=== PATIENT | female | born 1940 | race Caucasian/White ===

== ENCOUNTER → 2019-11-06 13:22 | Outpatient (CLI) | payer MEDICARE, SELFPAY ==
[2019-11-08 11:39] LABS: COVID19 Sendout Not Detected (Not Detect)
== END ==
PROVIDERS: PCP Family Medicine; Visit Provider Nurse Practitioner
DX: Z11.59 Encounter for screening for other viral diseases (principal)
CPT/HCPCS: 87635

== ENCOUNTER 2019-11-09 08:42 | Day surgery (SDC) | payer MEDICARE, SELFPAY ==
[2019-11-08 07:40] VITALS: BMI 23.8
[2019-11-09] VITALS (15 sets, daily range): BP systolic 98–170; BP diastolic 47–95; PULSE 71–108; RESP 10–19; TEMP 35.8–36.9; O2SAT 91–98; BMI 23.8
--- NOTE | 2019-11-09 06:00 | DI.RAD.S_ITS ---
PROCEDURE: XR KNEE RT 1TO2V INDICATIONS: postop. TECHNIQUE: 2 view(s) of the knee acquired. [facility], [place], XR KNEE ARTHRITIC SERIES BI, 09/27/2019, 14:37. FINDINGS: Bones: Patient is status post knee joint medial hemiarthroplasty. Hardware components are in expected positions. Visualized bony structures are intact. Soft tissues: Overlying postoperative changes are noted. IMPRESSION: Normal postoperative examination. Dictated by: Bruno Mark M.D. on 11/09/2019 at 12:43 Approved by: Bruno Mark M.D. on 11/09/2019 at 12:44
[2019-11-09] MEDS: LACTATED RINGERS 1,000 ML 42 ML IV (09:33)
[2019-11-09] MEDS: CELECOXIB 200 MG CAPSULE PO (09:34)
[2019-11-09] MEDS: ACETAMINOPHEN 325 MG TABLET 975 MG PO (09:34)
[2019-11-09] MEDS: PREGABALIN 75 MG CAPSULE PO (09:34)
[2019-11-09] MEDS: VANCOMYCIN 1,000 MG/200 ML PIGGYBACK 200 MG IV (09:48)
--- NOTE | 2019-11-09 10:19 | PM.PREOP ---
Pre-operative Note COVID-19 COVID-19 status: Negative Interval Note History & Physical reviewed/Exam performed by Physician: Yes Changes to H&P: No
--- NOTE | 2019-11-09 10:20 | PM.OP.1 ---
Operative Date/Time/Diagnoses Date of procedure: 11/09/19 Time of procedure: 10:49 Pre-op diagnosis: Right knee medial osteoarthritis Post-op diagnosis: same Procedure & Clinicians Procedure: Right knee medial unicompartment replacement Same procedure as scheduled: Yes Indications: The patient has had progressively worsening right knee pain with radiographic changes consistent with arthritis. Non-operative management has failed and the patient has requested partial right medial Uni knee replacement. The risks, benefits and alternatives to surgery were discussed with the patient prior to proceeding. Risks discussed included, but were not limited to, failure to relieve pain, stiffness, infection, nerve damage, deep venous thrombosis, pulmonary embolism, stroke, coma, heart attack, permanent paralysis and , as well as the potential need for eventual revision of the prosthetic. Surgeon: Cheryl Paz Service Line Coordinator: Romeo Young Anesthesia Type: General Operative Notes Findings: Severe medial compartment osteoarthritis, good stability Closure Type: primary Specimen(s): none sent Prosthetic devices, grafts, tissues, transplants, or devices: [employer], size C femur, size 3 tibia, +9 poly Estimated Blood Loss (mL): 250 Blood products transfused: none Procedure in detail: The patient was seen in the pre-operative area, where the right knee was identified as the operative site and this was marked with my initials. The patient received pre-operative antibiotics, and was taken to the operating room and placed on the operative table in the supine position. After satisfactory anesthesia, a registered phlebotomist part time out was performed. The right leg was encircled with a tourniquet about the proximal thigh, and the leg was prepared from the toes to the tourniquet with ChloroPrep in the usual fashion and draped through sterile drapes. The leg was elevated and exsanguinated with Eschmark bandage and the tourniquet inflated to [250] mmHg pressure. The knee was approached through an approximately 10 cm incision medial parapatella incision and carried into the knee through a medial parapatellar arthrotomy. The osteophytes and medial meniscus were removed. Next, a small amount of the anterior tibial boss was carefully resected with a saw. The guide was placed along the medial joint line. It was meticulously adjusted to make sure there was appropriate slope that it was at the joint line and then was pinned to the tibia and the femur. The medial femoral condylar cut was made in extension. The tibial cut was made in flexion. The bone was meticulously irrigated with normal saline. Small amount of additional meniscus was resected posterior capsule was checked and injected with Marcaine. The extension gap was carefully checked with an 8 mm gap design engineering technician was noted that it fit well. A small number of additional osteophytes were resected. The tibia was a size 3. It was noted that it fit without overhang. The femur was sized and it was noted to be a [C]. The appropriate cutting guide was pinned into place and carefully positioned on the femoral condyle. Drill holes were placed. The tibia was pinned into place and drill holes were made. Trial reduction with the appropriate poly showed full range of motion and good stability at 0, 45. and 90? with normal tracking of the components without edge loading. The bone was meticulously irrigated and dried. Additional Marcaine was injected. The posterior capsule was injected with 0.25% Marcaine mixed with 20 ml Exparel for post-operative pain control. The remainder of this mixture was injected into the capsule and subcutaneous tissues during cement curing. Range of motion was [0-130], with good stability throughout the range. The trials were then remove. The cement was as applied and the final prosthetics placed. Excess cement was removed during and after cement curing. A brief medial compartment Betadine soak was performed. After confirming there was no extruded cement posteriorly, the final tibial insert was placed. The knee was copiously irrigated and the tourniquet deflated. Hemostasis was obtained. The capsule was closed with interrupted vicryl. The subcutaneous tissue was closed with barbed sutures. The skin with a running 3-0 V-Lock suture and surgical glue. An Aquacel Ag dressing was applied and the patient was taken to recovery having tolerated the procedure well. Complications: none Post-operative Condition: stable Disposition: observation Plan for aftercare: The patient will be maintained on a standard medial Uni knee replacement protocol with weight bearing as tolerated. The patient will receive aspirin and sequential compression devices for DVT prophylaxis. She has known severe sleep apnea which she has had significant difficulty managing with her CPAP. Planning to admit her overnight for observation respiratory support as needed. She also had problems postoperatively after another did other knee with pain management.
[2019-11-09] MEDS: CEFAZOLIN 2 GM/100 ML FROZ.PIGGY IV ×2 (10:46→19:11)
[2019-11-09] MEDS: TRANEXAMIC ACID 1,000 MG VIAL 1000 MG INJ ×2 (11:03→12:02)
--- NOTE | 2019-11-09 11:10 | SUR.OPER ---
Supine on padded OR bed. Pillow under head, arms secured on padded armboards <90 degree abduction. Safety belt across torso. Non-operative leg secured with tape over blanket over lower leg. Operative leg secured in DeMayo/Bennie positioner. Foam padded brace at thigh of operative leg.
[2019-11-09] MEDS: BUPIVACAINE 0.25% W/ EPI 30 ML VIAL 60 ML INJ (11:17)
[2019-11-09] MEDS: BUPIVACAINE LIPOSOME 266 MG/20 ML VIAL INJ (11:18)
[2019-11-09] MEDS: SODIUM CHLORIDE IRRIG SOLUTION 250 ML, POVIDONE-IODINE SPONGE STICKS 1 APPLIC IRR (11:19)
--- NOTE | 2019-11-09 13:36 | PC.NURSE ---
Day shift: Pt on unit from PACU at approx 1330. Oriented to room and call light. She left her CPAP in [place]. VS WNL. Denies pain or nausea.
[2019-11-09] MEDS: LACTATED RINGERS 1,000 ML 100 ML IV (14:02)
--- NOTE | 2019-11-09 15:00 | PT.IIE ---
Current Diagnoses Unilateral primary osteoarthritis, right knee (11/09/19) Surgery Performed Operation Date: 11/09/19 10:45 Actual Procedures p Unicompartment Knee Arthroplasty(Right) - Cheryl Paz MD Physical Therapy Inpatient Evaluation/Re-Eval M1 PT/OT-IP Prior Functional Status Start: 11/09/19 16:30 Freq: NEEDED Status: Active Protocol: Document 11/09/19 15:00 AB (Rec: 11/09/19 16:42 [facility] Medical Review Prior Functional Status Medical History Reviewed Yes Communication able to make needs known Mobility and Gait pt stated that she is independent with all mobilities and ambulation without AD but occasionally uses SPC/hurrycane for outdoor mobility Social History Household Members spouse Living Arrangements House Number of Floors (Floors) One Floor Number of Stairs To Enter/Railing? 2 steps with L rail to enter Home Environment High Toilet,Walk in Shower, Built-In Shower Seat Home Equipment Hand Held Shower,Grab Bars In Shower M2 PT-IP Current Condition Start: 11/09/19 16:30 Freq: NEEDED Status: Active Protocol: Document 11/09/19 15:00 AB (Rec: 11/09/19 16:42 AB [id number]) Physical Therapy Current Condition Current Condition Evaluation Date 11/09/19 Treatment Diagnosis s/p R uni knee; difficulty in walking Onset Date 11/09/19 Weight Bearing Status Weight Bearing Status Weight Bear as Tolerated Allowed Weight Bearing Amount (enter % RLE WBAT or #) (%) M3 PT-IP Subjective Start: 11/09/19 16:30 Freq: NEEDED Status: Active Protocol: Document 11/09/19 15:00 AB (Rec: 11/09/19 16:42 [facility] Subjective Physical Therapy Visit Type Type Initial Evaluation Visit Start Time 15:00 Visit Stop Time 15:43 Total Visit Minutes 43 Number of LIGHTER Visits 0 Physical Therapy Visit Comments Patient Comments pt is agreeable to do PT; requesting to use the toilet Therapy Pain Assessment Pain Present Pain Present Denied Pain M4 PT-IP Mobility and Gait Start: 11/09/19 16:30 Freq: NEEDED Status: Active Protocol: Document 11/09/19 15:00 AB (Rec: 11/09/19 16:42 AB [id number]) PT-Bed Mobility Assessment Supine to Sit Supine to Sit Standby Assistance Sit to Supine Sit to Supine Standby Assistance PT-Transfer Assessment Sit to and From Stand Sit to and from Stand Contact Guard Assistance,1 Person Assistance Equipment Transfer Assistive Device Gait Belt,Front Wheeled Walker Orthotic/Prosthetic Devices or Brace: No Transfers Transfer Destination Toilet Transfer Technique ambulated using FWW Transfer Ability Level of Assist Contact Guard Assistance Comments Mobility Comments completed supine to sit SBA. pt can be impulsive. completed sit to stand CGA and ambulated to the toilet using FWW CGA. pt tends to carry and leave FWW for ambulation. stated that he does not have any pain on R knee. pt educated safety and agreed but continues to require cues afterwards. ambulated towards the toilet using FWW CGA. was able to complete toileting SBA and ambulated out of the toilet using FWW SBA towards the sink . completed handwashing SBA leaning on sink for support. ambulated in room ~ 40 ft using FWW SBA to CGA and cues for safety. pt requested to go back to bed and completed sit to supine SBA. positioned pt in bed. call light and table placed witin reach. Gait Assessment Gait Gait Assistance Required: Standby Assistance,Contact Guard Assist Distance (Feet) 40 Assistive Devices Assistive Device Gait Belt,Front Wheeled Walker Orthotic/Prosthetic Devices or Brace: No Gait Deviations General Gait Pattern Antalgic,Decreased Stride Length,Decreased Feet Clearance,Narrow Based Gait Factors Limiting Gait Function Factors Limiting Gait Function Decreased Activity Tolerance, Decreased Strength,Difficulty Following Directions,Limited Range of Motion,Pain,Poor Balance,Poor Safety Awareness Comments Gait Comments pt tends to cross LE during ambulation PT-Balance Assessment Sitting Balance and Reactions Static Sitting Balance Ability Good Dynamic Sitting Balance Ability Good Standing Balance and Reactions Static Standing Balance Ability Fair Dynamic Standing Balance Ability Fair Device Used FWW M5 PT-IP Objective Assessments Start: 11/09/19 16:30 Freq: NEEDED Status: Active Protocol: Document 11/09/19 15:00 AB (Rec: 11/09/19 16:42 AB [id number]) Orientation Orientation/Cognition Level of Alertness Alert Orientation Name,Age,Birthday,Month,Date, Year,Day of Week,Place, Situation Language Function Ability No Deficits Noted Safety Awareness Decreased Safety Awareness Strength Lower Extremity Strength Hip 4-/5 Knee 4-/5 Coordination Assessment Gross Coordination Gross Coordination WNL Sensation Assessment Sensation Gross Sensation WNL Muscle Tone Muscle Tone WNL Yes M6 PT-IP Treatment Start: 11/09/19 16:30 Freq: NEEDED Status: Active Protocol: Document 11/09/19 15:00 AB (Rec: 11/09/19 16:42 AB [id number]) Physical Therapy Treatment Exercises Exercises Heel Slides Education Education Provided Precautions,Weight Bearing Status,Post-Op Packet,Safety M7 PT-IP Assessment and Plan Start: 11/09/19 16:30 Freq: NEEDED Status: Active Protocol: Document 11/09/19 15:00 AB (Rec: 11/09/19 16:42 AB [id number]) PT Summary Assessment and Plan Potential Rehabilitation Potential Good Status of Condition at Evaluation Stable Summary Impairments Pain,ROM,Strength,Balance, Coordination,Sensation, Cognition,Bed Mobility, Transfers,Gait,Activity Tolerance Assessment Summary pt requiring SBA to CGA with mobility. pt plans to go home and spouse to assist her. will conduct caregiver training when appropriate and will also completed stair cliimbing training. Pt does not have a FWW for home use at this time, stated that she can get one at the [facility] in [place]. will f/u and if pt is not able to get a FWW, will need FWW before going home. Goals Bed Mobility Goal Independent Transfer Goal Independent,Front Wheeled Walker Gait Goal Independent,Front Wheel Walker Gait Distance 250 Other Goals up/down 2 steps L rail ascending SBA Days to Meet Goals 5 Frequency of Treatment Frequency Of Treatment Twice a Day Treatment Plan Physical Therapy Treatment Plan Bed Mobility Training,Transfer Training,Gait Training, Therapeutic Exercise,Balance Retraining,Post Op Education, Discharge Planning,Hot or Cold Pack,Neuromuscular Re-ed, Coordination Retraining,Manual Therapy Recommendations To Nursing Amount of Assist Needed 1 Person Assist Discharge Recommendations PT Discharge Recommendations Home with Assistance, Outpatient PT Equipment Needed for Home Before FWW Discharge Transportation Needs at Discharge Private Vehicle,Wheelchair/ Cabulance
[2019-11-09] MEDS: ACETAMINOPHEN 325 MG TABLET 650 MG PO ×2 (15:50→21:57)
[2019-11-09] MEDS: IBUPROFEN 400 MG TABLET PO ×3 (17:20→23:49)
[2019-11-09] MEDS: ASPIRIN EC 81 MG TABLET PO (21:57)
[2019-11-09] MEDS: ATORVASTATIN 20 MG TABLET 40 MG PO (21:57)
[2019-11-09] MEDS: DOCUSATE 100 MG CAPSULE PO (21:57)
--- NOTE | 2019-11-09 22:34 | PC.NURSE ---
Addendum entered by Isaiah Fagan R.N. 11/09/19 22:37: Eugenio w/ Driss wrap clean/dry/intact. Original Note: Patient having minimal pain 03/05. Patient using scheduled Tylenol and Ibuprofen. Standby assist w/ FWW to the bathroom. Patient CMS intact, no numbness or tingling, pedal pulses palpable.
[2019-11-10] VITALS: BP 147/92; PULSE 87; RESP 16; TEMP 36.7; O2SAT 94
--- NOTE | 2019-11-10 01:57 | PC.NURSE ---
Pt denies pain to right knee. Dressing CDI. CMS+ PPP+. Pt is SBA and ambulating well with steady gait. IV fluids stopped as she is taking adequate PO with good urinary output. Pt is assisted back to bed and CPAP in place.
[2019-11-10] MEDS: CEFAZOLIN 2 GM/100 ML FROZ.PIGGY IV (02:16)
[2019-11-10] MEDS: HYDROMORPHONE 2 MG TABLET PO (02:30)
[2019-11-10 05:46] VITALS: BP 167/81; PULSE 89; RESP 16; TEMP 36.2; O2SAT 97
[2019-11-10 05:54] LABS: Hematocrit 34.4 % (36-46); Hemoglobin 11.2 g/dL (12.0-16.0)
[2019-11-10] MEDS: IBUPROFEN 400 MG TABLET PO ×2 (06:17→08:12)
[2019-11-10 07:15] VITALS: BP 131/73; PULSE 79; RESP 19; TEMP 36.9; O2SAT 96
[2019-11-10 07:51] VITALS: O2SAT 98
--- NOTE | 2019-11-10 07:59 | PM.PN.1 ---
Subjective Subjective Date Patient Seen: 11/10/19 Time Patient Seen: 07:59 Interval history: She notes she is doing extremely well. She has minimal pain in her knee and she is much better than she was on the other knee. She did not have problems with her sleep apnea overnight. Exam Vital Signs (past 8 hours): - 11/10/19 00:00 11/10/19 05:46 11/10/19 07:51 Temperature 98.1 F 97.1 F L Pulse Rate 87 89 Respiratory Rate 16 16 Blood Pressure 147/92 H 167/81 H Pulse Oximetry 94 97 98 Oxygen Delivery Method Room Air Oxygen Flow Rate 0 Narrative Exam Narrative: She is alert she is oriented her dressing is dry her calfs are soft bilaterally she has an excellent straight leg raise Objective Labs Result Diagrams: 11/10/19 05:20 Labs: Laboratory Results - last 24 hr 11/10/19 05:20 Hgb 11.2 L Hct 34.4 L Assessment & Plan Assessment & Plan narrative: Doing well status post a medial compartment arthroplasty. Plan discharge to home and start outpatient physical therapy.
[2019-11-10] MEDS: DOCUSATE 100 MG CAPSULE PO (08:11)
[2019-11-10] MEDS: ACETAMINOPHEN 325 MG TABLET 650 MG PO (08:11)
[2019-11-10] MEDS: FLUoxetine 20 MG CAPSULE 40 MG PO (08:11)
[2019-11-10] MEDS: ASPIRIN EC 81 MG TABLET PO (08:12)
--- NOTE | 2019-11-10 09:26 | PT.IPTN ---
Current Diagnoses Unilateral primary osteoarthritis, right knee (11/09/19) Surgery Performed Operation Date: 11/09/19 10:45 Actual Procedures p Unicompartment Knee Arthroplasty(Right) - Cheryl Paz MD Physical Therapy Treatment Note M2 PT-IP Current Condition Start: 11/09/19 16:30 Freq: NEEDED Status: Discharge Protocol: Document 11/09/19 15:00 AB (Rec: 11/09/19 16:42 AB [id number]) Physical Therapy Current Condition Current Condition Evaluation Date 11/09/19 Treatment Diagnosis s/p R uni knee; difficulty in walking Onset Date 11/09/19 Weight Bearing Status Weight Bearing Status Weight Bear as Tolerated Allowed Weight Bearing Amount (enter % RLE WBAT or #) (%) M3 PT-IP Subjective Start: 11/09/19 16:30 Freq: NEEDED Status: Discharge Protocol: Document 11/10/19 09:26 AB (Rec: 11/10/19 12:31 AB [email or web address]) Subjective Physical Therapy Visit Type Type Treatment Note Visit Start Time 09:26 Visit Stop Time 09:45 Total Visit Minutes 19 Number of BANKING CONSULTANT Visits 0 Physical Therapy Visit Comments Patient Comments pt is agreeablet od o PT Therapy Pain Assessment Pain When Pain Assessed At Rest Pain Present Pain Present Pain Reported Location Right Knee Intensity 2 Scale Used Numeric (0 - 10) Pain Management Techniques Timing of Activity with Medications M4 PT-IP Mobility and Gait Start: 11/09/19 16:30 Freq: NEEDED Status: Discharge Protocol: Document 11/10/19 09:26 AB (Rec: 11/10/19 12:31 AB [email or web address]) PT-Bed Mobility Assessment Supine to Sit Supine to Sit Standby Assistance Sit to Supine Sit to Supine Standby Assistance Scooting Scooting to Edge of Bed Standby Assistance PT-Transfer Assessment Sit to and From Stand Sit to and from Stand Standby Assistance Equipment Transfer Assistive Device Gait Belt,Straight Cane Orthotic/Prosthetic Devices or Brace: No Comments Mobility Comments followed up with pt regarding FWW and stated that she does not need one. from previous conversation, stated that she is going to be able to borrow one. pt stated that she has a cane at home. pt called her spouse to get a FWW for her. completed supine to sit SBA. assessed ambulation using SPC. completed sit to stand SBA and ambulated in room using SPC ~ 30 ft CGA with initial LOB but able to rebalance. agreed to ambulate in hallway and do stair climbing. completed ambulation using SPC SBA to CGA ~ 150 ft. completed up/down steps using L rail and SPC CGA. pt assisted back to her room. ambulated from w/c to bed using SPC SBA. NAC in room and took over to assist pt to get ready for d/c. Gait Assessment Gait Gait Assistance Required: Standby Assistance,Contact Guard Assist Distance (Feet) 150 Able to Maintain Weight Bearing Status Yes During Gait Assistive Devices Assistive Device Gait Belt,Front Wheeled Walker Orthotic/Prosthetic Devices or Brace: No Gait Deviations General Gait Pattern Antalgic,Decreased Stride Length,Decreased Feet Clearance,Step-to Gait Factors Limiting Gait Function Factors Limiting Gait Function Decreased Activity Tolerance, Decreased Strength,Difficulty Following Directions,Limited Range of Motion,Pain,Poor Balance,Poor Safety Awareness Stair Climbing Assessment Evaluation Level of Assist On Stairs Contact Guard Assistance,1 Person Assistance Devices Stair Climbing Assistive Devices Straight Cane,Left Railing Technique/Endurance Stair Climbing Direction Ascend and Descend Stair Climbing Technique Step to Step Number of Steps Climbed 3 Stair Climbing Set # Repetitions (reps) 2 M5 PT-IP Objective Assessments Start: 11/09/19 16:30 Freq: NEEDED Status: Discharge Protocol: Document 11/09/19 15:00 AB (Rec: 11/09/19 16:42 AB [email or web address]) Orientation Orientation/Cognition Level of Alertness Alert Orientation Name,Age,Birthday,Month,Date, Year,Day of Week,Place, Situation Language Function Ability No Deficits Noted Safety Awareness Decreased Safety Awareness Strength Lower Extremity Strength Hip 4-/5 Knee 4-/5 Coordination Assessment Gross Coordination Gross Coordination WNL Sensation Assessment Sensation Gross Sensation WNL Muscle Tone Muscle Tone WNL Yes M6 PT-IP Treatment Start: 11/09/19 16:30 Freq: NEEDED Status: Discharge Protocol: Document 11/10/19 09:26 AB (Rec: 11/10/19 12:31 AB [email or web address]) Physical Therapy Treatment Education Education Provided Safety M7 PT-IP Assessment and Plan Start: 11/09/19 16:30 Freq: NEEDED Status: Discharge Protocol: Document 11/10/19 09:26 AB (Rec: 11/10/19 12:31 AB [email or web address]) PT Summary Assessment and Plan Potential Rehabilitation Potential Good Summary Impairments Pain,ROM,Strength,Balance, Coordination,Sensation,Tone, Cognition,Bed Mobility, Transfers,Gait,Activity Tolerance Progress Towards Goals Progressing Toward Goals Assessment Summary pt is progressing with mobility. able to ambulate using SPC SBA but FWW is still recommended especially for long distance, outdoor mobility. pt plans to go home with spouse to assist her and has outpt scheduled. pt may go home when medically stable. Goals Bed Mobility Goal Independent Transfer Goal Independent,Front Wheeled Walker Gait Goal Independent,Front Wheel Walker Gait Distance 250 Other Goals ambulation using SPC mod I 200 ft up/down 2 steps L rail ascending SBA Days to Meet Goals 5 Frequency of Treatment Frequency Of Treatment Twice a Day Treatment Plan Physical Therapy Treatment Plan Bed Mobility Training,Transfer Training,Gait Training, Therapeutic Exercise,Balance Retraining,Post Op Education, Discharge Planning,Hot or Cold Pack,Neuromuscular Re-ed, Coordination Retraining,Manual Therapy Recommendations To Nursing Amount of Assist Needed 1 Person Assist Discharge Recommendations PT Discharge Recommendations Home with Assistance, Outpatient PT Equipment Needed for Home Before FWW Discharge Transportation Needs at Discharge Private Vehicle,Wheelchair/ Cabulance
--- NOTE | 2019-11-10 10:15 | PC.NURSE ---
Discharge: Reviewed discharge instructions, given prescriptions, IV removed. Patient has all belongings with her. Transported home in private vehicle with spouse.
== END 2019-11-10 10:50 | disposition home or self-care (01) ==
LOC: OR 12:52 → AC 12:53
PROVIDERS: Referring Provider Orthopaedic Surgery; Visit Provider Orthopaedic Surgery
PROC: (CPT 27446; principal; 2019-11-09 10:45)
DX: M17.11 Unilateral primary osteoarthritis, right knee (principal); G47.33 Obstructive sleep apnea (adult) (pediatric); I25.10 Atherosclerotic heart disease of native coronary artery without angina pectoris; I25.2 Old myocardial infarction; F17.210 Nicotine dependence, cigarettes, uncomplicated
CPT/HCPCS: 27446; 36415; 73560; 85014; 85018; 94660; 94762; 97116; 97161; 97530; C1776; A9270; C9290; J0690; J1100; J2250; J2405; J2704; J3010

== ENCOUNTER → 2019-12-07 10:00 | Outpatient (CLI) | payer MEDICARE, SELFPAY ==
[2019-11-09 14:05] VITALS: BMI 23.8
[2019-12-08 00:48] LABS: COVID19 Sendout Not Detected (Not Detect)
== END ==
PROVIDERS: Visit Provider Physician Assistant
DX: Z01.812 Encounter for preprocedural laboratory examination (principal)
CPT/HCPCS: 87635

== ENCOUNTER 2019-12-11 13:00 | Observation (INO) | payer MEDICARE, SELFPAY ==
[2019-11-09 14:05] VITALS: BMI 23.8
[2019-12-07 11:50] VITALS: BMI 23.8
[2019-12-10] VITALS (12 sets, daily range): BP systolic 98–164; BP diastolic 68–89; PULSE 87–108; RESP 12–23; TEMP 36.3–36.9; O2SAT 89–98; BMI 23.8
--- NOTE | 2019-12-10 | DI.RAD.S_ITS ---
PROCEDURE: XR LUMBAR SPINE 2-3V INDICATIONS: L4-5 TLIF TECHNIQUE: Fluoroscopic images were obtained during an operative procedure and submitted for interpretation following the completion of the procedure. COMPARISON: [facility], CT, CT LUMBAR SPINE WITHOUT CONTRAST, 09/30/2019, 12:13. FINDINGS: These fluoroscopic images were performed for intraoperative localization. On these images, pedicle screws are seen at the L4 and L5 levels, with vertical fixation rods and a disc spacer.. Please correlate with intraoperative findings. A sacral stimulator can be seen. IMPRESSION: Normal intraoperative examination. Dictated by: Bruno Mark M.D. on 12/10/2019 at 10:23 Approved by: Bruno Mark M.D. on 12/10/2019 at 10:24
[2019-12-10] MEDS: LACTATED RINGERS 1,000 ML 42 ML IV (07:45)
--- NOTE | 2019-12-10 07:49 | PM.PREOP ---
Pre-operative Note COVID-19 COVID-19 status: Negative Result date/Date tested (Pos, Neg/Pending): 12/08/19 Interval Note History & Physical reviewed/Exam performed by Physician: Yes Changes to H&P: No
[2019-12-10] MEDS: CEFAZOLIN 2 GM/100 ML FROZ.PIGGY IV (07:55)
--- NOTE | 2019-12-10 08:36 | SUR.OPER ---
Prone on spine table, head in foam head support, padded chest and pelvic supports, gel pad at knees, lower legs supported by pillows; nipples, genitalia and toes free of pressure, arms secured on foam padded arm boards at <90 degrees abduction. Tape over blanket at thigh secured to table.
[2019-12-10] MEDS: BUPIVACAINE 0.25% W/ EPI 30 ML VIAL INJ (08:40)
[2019-12-10] MEDS: BUPIVACAINE LIPOSOME 266 MG/20 ML VIAL INJ (08:42)
--- NOTE | 2019-12-10 10:31 | PM.OP.1 ---
Operative Date/Time/Diagnoses Date of procedure: 12/10/19 Time of procedure: 08:31 Pre-op diagnosis: 1. L4-5 spondylolisthesis 2. L4-5 spinal stenosis with radiculopathy Post-op diagnosis: same Procedure & Clinicians Procedure: 1. L4-5 Postero-lateral and posterior interbody fusion 2. L4-5 interbody cage placement. 3. L4-5 decompressive laminectomy with bilateral facetecomies 4. L4-5 Posterior non-segmental instrumentation 5. [place] of bone marrow from iliac crest 6. Utilization of microsurgical technique and operating microscope Same procedure as scheduled: Yes Indications: Patient has been having chronic back pain and worsening lumbar radiculopathy. Patient failed multiple conservative management with worsening pain weakness and numbness in her lower extremity. Patient has been having difficulty performing activity of daily living. After discussing risks benefits of treatment options, patient elected proceed with surgery. Surgeon: Niko Richard Field Sales Consultant: Aracelis Cunningham Click Yes if Unassisted: No Anesthesia Type: General Operative Notes Closure Type: primary Specimen(s): none sent Prosthetic devices, grafts, tissues, transplants, or devices: Globus revolve screws, Rise cage Estimated Blood Loss (mL): 40 Blood products transfused: none Procedure in detail: Patient was seen in the preoperative area. Risks and benefits of the surgery was discussed with the patient. Informed consent was obtained from the patient and placed in the chart. Surgical site was marked. Patient was taken to the operative room. General anesthesia was administered. Prophylactic antibiotic was given to the patient less than 30 min before the incision was made. Patient was placed into a prone position on the Giovani table. Patient's back was then prepped and draped in the sterile fashion. Time-out was performed at this time. Using AP and lateral C-arm imaging the interval between L4-5 was identified and marked on patient's back. A 2 inch incision 2 in from midline was made on the left side first. The fascia was incised in line with skin incision. Globus MARS retractors was placed inside the incision and docked onto the L4 lamina. Using microsurgical technique and operating microscope, a L4 laminectomy and L4-5 facetectomy was performed using a Kerrison rongeur. The disc space at L4-5 was identified. And a total diskectomy was performed at L4-5 level. Patient was found have severe central and neural foramen stenosis which was fully decompressed after laminectomy facetectomy was completed. The endplates were decorticated using a rasp and shaver. The total diskectomy and decortication was performed at L4-5 level in order to to accomplish a L4-5 fusion. The local bone from the laminectomy and facetectomy was saved for local bone grafting. After the total diskectomy and decortication was completed, Trifecta bone graft material was combined with local bone that was harvested earlier. At this time, a separate skin is incision was made over the iliac crest. A Jamshidi needle was inserted into the iliac crest through a separate skin incision. 5 cc of bone marrow aspiration was obtained through the separate skin incision using a Jamshidi needle from the iliac crest. The bone marrow aspiration was combined with local bone and the Trifecta bone grafting material. The bone grafting material was placed into the L4-5 interbody space along with a expandable cage. The cage was expanded to its maximum height using the torque limiting screwdriver. At this time a mirror image incision was made on the right side. The fascia was incised in line with the skin incision. Globus MARS retractor was inserted and docked onto the L4-5 posterolateral gutter. Using the power drill, posterior-lateral decortication was performed at L4-5 level until bleeding cortical bone was identified. The remaining bone grafting material was placed into the L4-5 posterior lateral gutter he order to accomplish posterolateral fusion at the L4-5 level. Using the double C-arm technique, pedicle screws were placed into the L4-5 pedicles bilaterally. This was done by placing the Jamshidi needle into the pedicles, then placing the guidewires over the Jamshidi needle, and finally placing the cannulated screws over the guidewires bilaterally. After the pedicle screws were placed, 2 titanium rods was locked into the heads of the pedicle screws using locking caps and torque limiting screwdriver. Thread reducers were used to reduce patient's spondylolisthesis. Appropriate reduction was accomplished and maintained using a hardware placed patient's L4-5 level. After all the hardware was placed, and confirmed with AP and lateral C-arm imaging, the wound was then irrigated with sterile normal saline and packed with Ray-Delmy gauze for 3 min to accomplish hemostasis. After the gauze was removed the deep fascia was closed with #1 Vicryl suture. The subcutaneous layer was closed with 2-0 Vicryl. The skin was closed with skin alexis. Patient tolerated the procedure well. There were no complications. Complications: none Post-operative Condition: stable Disposition: PACU Plan for aftercare: Admit to inpatient hospital
[2019-12-10] MEDS: HYDROMORPHONE 2 MG INJ IV ×4 (10:42→10:57)
[2019-12-10] MEDS: OXYCODONE IR 5 MG TABLET PO (10:51)
[2019-12-10] MEDS: fentaNYL 100 MCG/2 ML INJ IV ×2 (10:55→11:00)
--- NOTE | 2019-12-10 11:02 | CM.DANOTE ---
Patient is an 79 year old female who was admitted today 12/10/19 for TLIF. Pt has [facility] for insurance and her PCP is not listed. EMR was reviewed. Per Ortho MD, pt scheduled for TLIF this morning and is currently off the floor for surgery. Pt was last admitted to [facility] in Oct 2019 this year for Uni Knee Arthroplasty and pt resides at [place] [address] with her and is fairly active and independent at baseline. Pt was able to d/c home with spouse assist and outpt PT after knee surgery last month. Pt has utilized the [facility] for DME before and aware of how to access their resources. Plan: SW to follow closely today after pt returns to the floor after TLIF surgery currently and PT/OT to eval for recommendations if pt will be safe for return home with spouse at d/c and any further identified discharge planning needs. PANDA David Discharge Planning/Care Management CM Discharge Assessment Start: 11/10/19 14:14 Freq: Status: Active Protocol: Document 11/10/19 14:14 KJS (Rec: 11/10/19 14:23 KJS [id number]) Discharge Planning Assessment Assigned Release Coordinator PANDA Headley Contact Information Angel Art (spouse) Advance Directives? Yes History Provided By Medical Record Prior Living Arrangements House Household Members spouse Independent with ADL's Yes Is patient alert and oriented? Yes Caregiver for Another No Barriers to Discharge No Discharge Plan Home Transportation Arrangement Family to provide transport. Referrals Initiated None needed Comment Attempted to see patient this afternoon. Patient has already discharged. Per RN, there were no d/c planning needs. Review Status In Process Next Review Type Continued Stay Review Document 12/10/19 11:00 BF (Rec: 12/10/19 11:02 BF [id number]) Discharge Planning Assessment Assigned Release Coordinator Brooke, MSW DPOA/Assigned Designee Name spouse Contact Information Angel Art (spouse) [phone] Advance Directives? Yes Advance Directives on File Yes History Provided By Patient,Medical Record Has Patient been admitted in last 30 Yes days? Comment Was admitted Oct 2019 for Uni knee Arthroplasty at [facility] Prior Living Arrangements House Household Members spouse Type of transporation used prior to Drives own vehicle admit Independent with ADL's Yes Is patient alert and oriented? Yes Needs Assistance With Home Chores / Shopping Caregiver for Another No Community Services used prior to Physical Therapy admission: DME Already Rented / Owned FWW / Walker,Cane Comment Pending PT/OT eval and recommendations Barriers to Discharge No Discharge Plan Home Community Services Physical Therapy,Occupational Therapy Transportation Arrangement Family to provide transport. Referrals Initiated None needed Additional Comment Pending PT/OT eval and recommendations Review Status In Process Please Provide Date Initial DC 12/10/19 Assessment Was Performed Next Review Type Continued Stay Review Pre-Anesthesia Assessment Start: 12/07/19 11:50 Freq: Status: Active Protocol: Document 12/07/19 11:50 CAB (Rec: 12/07/19 12:22 CAB [id number]) Pre-Anesthesia Assessment PAC Comment Pt declined PAC assessment, states no questions/concerns, denies any changes to medical/ medication history, chart review only. PMH gleaned from Surgeon H&P dated 11/05/19 for right uni knee surgery11/09/19 Patient Information Reviewed Via Chart Review Diagnostic Results BMP/CMP,CBC,EKG,Urinalysis Comment Outside labs/EKG scanned, COVID screen @ 12/07/19 Primary Care Provider Micaela Patiño Seen Specialist in Last 12 Months Yes Specialist Seen Orthopedist Primary Language Georgian Preferred Language Georgian Promotions Team Leader Required No Height 167.64 cm Weight 67.132 kg Body Mass Index (BMI) 23.8 Hx Anesthesia Reactions No Hx Family Anesthesia Reaction No Hx Malignant Hyperthermia No Hx Blood Transfusion Reaction No Anesthesia Review Requested No Biometrics Experimentalist No alcohol intake current alcohol intake frequency a few times a month Smoking Status Current every day smoker Tobacco type cigarettes Substance Use Type marijuana Pain Present Pain Reported Musculoskeletal Symptoms Abnormal Gait,Back Pain Patient is completely paralyzed or No completely immobile Mental Status Oriented to own ability Is patient on oxygen? No Hx Sleep Apnea Yes CPAP/BIPAP use prescribed not used Currently Taking a Beta Wanda No Anti-Coagulant Therapy Yes: Clopidogril-unknown what instructions have been given to pt Hx Pacemaker/ICD No Pacemaker Rep Required? No Urinary Catheter Present No Hx Urinary Self Catheterization No Diabetes No Patient No Lactating No Presence of External or Internal Medical Yes: bladder stimulator, rt Devices uni knee Have you had any close contact with Unknown someone diagnosed with COVID-19? Marital Status Lives With spouse Prior Living Arrangements House Patient Discharge Plan Description Return Home Do You Have Any Spiritual Beliefs That No May Affect Your HC Choices? Do You Have Any Cultural Practices That No May Affect Your HC Choices? Emergency Contact Name Angel Art Emergency Contact Advance Directives? Yes Power of Mine Expert Yes Power of Mine Expert Name Angel Art Power of Mine Expert Stop Bang Assessment Do you snore loudly (louder than talking No or loud enough to be heard through closed doors) Do you often feel tired, fatigued or Yes sleepy during the daytime Has anyone ever observed you stop Yes breathing while sleeping? Do you have, or are you being treated No for, high blood pressure Is your BMI more than 35 kg/m2 No Age over 50 No Estimated neck circumference greater No than 40cm or 16in Gender male No Result Negative
[2019-12-10] MEDS: SODIUM CHLORIDE 0.9% 1,000 ML 100 ML IV ×2 (12:16→22:23)
--- NOTE | 2019-12-10 14:35 | PT.IIE ---
Current Diagnoses Spondylolisthesis, lumbar region (12/10/19) Surgery Performed Operation Date: 12/10/19 07:45 Actual Procedures p L4-5 TLIF - Niko Richard MD Surgical History (Last Updated 12/07/19 @ 12:19 by Leeann Schneider RN) H/O cataract extraction (Acute) History of facelift (Acute) History of hysterectomy (Acute) Hx of abdominoplasty (Acute) Hx of tonsillectomy (Acute) S/P right unicompartmental knee replacement (Acute 11/09/19) Medical History (Last Updated 12/07/19 @ 12:19 by Leeann Schneider RN) Asthma (Acute) Depression (Acute) Gato's disease (Acute) Iron deficiency anemia (Acute) Myocardial infarction (Acute) MARIPOSA (obstructive sleep apnea) (Acute) Osteoporosis (Acute) Rib fracture (Acute) Physical Therapy Inpatient Evaluation/Re-Eval M1 PT/OT-IP Prior Functional Status Start: 12/10/19 15:50 Freq: NEEDED Status: Active Protocol: Document 12/10/19 15:50 AB (Rec: 12/10/19 16:09 AB [id number]) Medical Review Prior Functional Status Medical History Reviewed Yes Communication able to make needs known Mobility and Gait pt stated that she is independent with all mobilities and ambulation without AD but occasionally uses a hurrycane dependent on level of pain Social History Household Members spouse Living Arrangements House Number of Floors (Floors) One Floor Number of Stairs To Enter/Railing? pt usually gets in from the garage with 3 steps to enter with L rail ascending Home Environment Standard Height Toilet,Walk in Shower,Built-In Shower Seat Home Equipment Four Wheel Walker,Straight Cane,Hand Held Shower,Grab Bars In Shower Additional Social History Comment has a hurrycane M2 PT-IP Current Condition Start: 12/10/19 15:50 Freq: NEEDED Status: Active Protocol: Document 12/10/19 15:50 AB (Rec: 12/10/19 16:09 AB [id number]) Physical Therapy Current Condition Current Condition Evaluation Date 12/10/19 Treatment Diagnosis s/p L 4-5 fusion/lami; difficulty in walking Onset Date 12/10/19 Precautions Lumbar Precautions Log Roll,No Twisting,Limit Bending,Lifting Restriction of 10 lbs,Gait Belt above Incisional Area M3 PT-IP Subjective Start: 12/10/19 15:50 Freq: NEEDED Status: Active Protocol: Document 12/10/19 15:50 AB (Rec: 12/10/19 16:09 AB [id number]) Subjective Physical Therapy Visit Type Type Initial Evaluation Visit Start Time 14:35 Visit Stop Time 15:23 Total Visit Minutes 48 Number of DRY MILL WORKER Visits 0 Physical Therapy Visit Comments Patient Comments pt is agreeable to do PT Therapy Pain Assessment Pain When Pain Assessed At Rest Pain Present Pain Present Pain Reported Location Right Knee Intensity 2 Scale Used Numeric (0 - 10) Pain Management Techniques Modification of Treatment,Re- positioning,Timing of Activity with Medications M4 PT-IP Mobility and Gait Start: 12/10/19 15:50 Freq: NEEDED Status: Active Protocol: Document 12/10/19 15:50 AB (Rec: 12/10/19 16:09 AB [id number]) PT-Bed Mobility Assessment Rolling Type of Rolling Log Rolling Supine to Sit Supine to Sit Standby Assistance Scooting Scooting to Edge of Bed Standby Assistance PT-Transfer Assessment Sit to and From Stand Sit to and from Stand Contact Guard Assistance,1 Person Assistance,Use of Upper Extremities Equipment Transfer Assistive Device Gait Belt,Front Wheeled Walker Orthotic/Prosthetic Devices or Brace: No Transfers Transfer Destination Chair Transfer Technique ambulated using FWW Transfer Ability Level of Assist Contact Guard Assistance,1 Person Assistance,Use of Upper Extremities Comments Mobility Comments educated on back precautions and log roll bed mobility. BP supine: 114/69 completed supine to sit SBA with cues for log roll. pt was able to sit on EOB SBA. BP in sitting : 93/60. pt without c/o lightheadness/dizziness. pt tolerated sitting for another 2 min. BP checked again: 106/ 67. pt completed sit to stand CGA. ambulated in room ~ 40 ft. agreed to sit up on chair . BP checked again: 97/60. positioned pt on chair. call light and table placed within reach. pt stated that she feels sweaty. informed nurse regarding BP reading. Gait Assessment Gait Gait Assistance Required: Contact Guard Assist Distance (Feet) 40 Able to Maintain Weight Bearing Status Yes During Gait Assistive Devices Assistive Device Gait Belt,Front Wheeled Walker Orthotic/Prosthetic Devices or Brace: No Gait Deviations General Gait Pattern Antalgic Factors Limiting Gait Function Factors Limiting Gait Function Decreased Activity Tolerance, Decreased Strength,Limited Range of Motion,Pain,Poor Balance,Poor Safety Awareness Comments Gait Comments pls refer to mobility section for details PT-Balance Assessment Sitting Balance and Reactions Static Sitting Balance Ability Good Dynamic Sitting Balance Ability Good Standing Balance and Reactions Static Standing Balance Ability Fair Dynamic Standing Balance Ability Fair Device Used FWW M5 PT-IP Objective Assessments Start: 12/10/19 15:50 Freq: NEEDED Status: Active Protocol: Document 12/10/19 15:50 AB (Rec: 12/10/19 16:09 [id number]) Orientation Orientation/Cognition Level of Alertness Alert Orientation Name,Place,Situation Language Function Ability Hard of Hearing Safety Awareness Decreased Safety Awareness Memory Description Short Term Impaired Gross Range of Motion Lower Extremity ROM Assessment Within Functional Limits Strength Lower Extremity Strength Assessment Within Functional Limits Hip 4-/5 Knee 4-/5 Coordination Assessment Gross Coordination Gross Coordination WNL Sensation Assessment Sensation Gross Sensation WNL Muscle Tone Muscle Tone WNL Yes M6 PT-IP Treatment Start: 12/10/19 15:50 Freq: NEEDED Status: Active Protocol: Document 12/10/19 15:50 AB (Rec: 12/10/19 16:09 [id number]) Physical Therapy Treatment Education Education Provided Precautions,Weight Bearing Status,Post-Op Packet,Safety M7 PT-IP Assessment and Plan Start: 12/10/19 15:50 Freq: NEEDED Status: Active Protocol: Document 12/10/19 15:50 AB (Rec: 12/10/19 16:09 [id number]) PT Summary Assessment and Plan Potential Rehabilitation Potential Good Status of Condition at Evaluation Stable Summary Impairments Pain,ROM,Strength,Balance, Coordination,Cognition,Bed Mobility,Transfers,Gait, Activity Tolerance Assessment Summary pt requiring CGA with ambulation using FWW and will likely progress during hospital stay. pt plans to go home with spouse to assist her. will conduct caregiver training if appropriate. will also complete up/down steps with L rail prior to d/c. Goals Bed Mobility Goal Independent Transfer Goal Independent,Front Wheeled Walker,Four Wheeled Walker Gait Goal Independent,Front Wheel Walker ,Four Wheel Walker Gait Distance 200 Other Goals up/down 3 steps L rail ascending Days to Meet Goals 5 Frequency of Treatment Frequency Of Treatment Twice a Day Treatment Plan Physical Therapy Treatment Plan Bed Mobility Training,Transfer Training,Gait Training, Therapeutic Exercise,Balance Retraining,Post Op Education, Discharge Planning,Hot or Cold Pack,Neuromuscular Re-ed, Coordination Retraining,Manual Therapy Recommendations To Nursing Amount of Assist Needed 1 Person Assist Discharge Recommendations PT Discharge Recommendations Home with Assistance Transportation Needs at Discharge Private Vehicle
[2019-12-10] MEDS: OXYCODONE IR 5 MG TABLET 10 MG PO (15:56)
[2019-12-10] MEDS: CEFAZOLIN 1 GM/50 ML FROZ.PIGGY IV ×2 (15:56→23:53)
[2019-12-10] MEDS: DOCUSATE 100 MG CAPSULE PO (20:59)
[2019-12-10] MEDS: TRAZODONE 50 MG TABLET PO (21:00)
[2019-12-11] VITALS (10 sets, daily range): BP systolic 103–140; BP diastolic 48–81; PULSE 74–102; RESP 14–20; TEMP 36.1–38.1; O2SAT 91–99
--- NOTE | 2019-12-11 00:52 | PC.NURSE ---
Addendum entered by Valentina Tyson R.N. 12/11/19 03:36: States pain is currently 4/10 and requested/medicated with Oxycodone and assisted to reposition onto left side. Declined ice pack Original Note: Patient initially seen and assessed at 0004. Is alert and oriented. [place] but has bilateral hearing aids. Breath sounds CTA with RA sat of 97%. HRR. BP has been fluctuating and at 0033 was 140/76. Denies nausea. BT hypoactive; abdomen is soft but patient denies flatus as yet. Denies dysuria, frequency or urgency with urination. Is able to turn herself in bed. Up to bathroom with walker and 1 assist. Dressing to back is intact with small area of shadow drainage. CMS intact bilaterally. States back pain is only 1/10 and describes as zingy but is tolerable. Refusing SCD's as state she is unable to sleep with them on. Fall risk score is moderate; bed alarm is activated.
[2019-12-11] MEDS: OXYCODONE IR 5 MG TABLET 10 MG PO ×5 (03:30→21:13)
[2019-12-11] MEDS: DOCUSATE 100 MG CAPSULE PO ×2 (08:24→21:13)
[2019-12-11] MEDS: FLUoxetine 20 MG CAPSULE 60 MG PO (08:31)
--- NOTE | 2019-12-11 09:37 | PM.PNPO.1 ---
Subjective Subjective Date Patient Seen: 12/11/19 Time Patient Seen: 09:37 Interval history: Patient's pain is moderate. Denies fever chills. No nausea vomiting. Her is home to assist her however he is in ?worse shape ? than she is. Exam Vital Signs (past 8 hours): - 12/11/19 03:30 12/11/19 08:31 Temperature 97.7 F 97.8 F Pulse Rate 91 H 102 H Respiratory Rate 20 18 Blood Pressure 134/81 103/65 Pulse Oximetry 96 98 Oxygen Delivery Method Room Air Oxygen Flow Rate 0 Narrative Exam Narrative: Pleasant as 79-year-old female resting comfortably in bedside chair in no apparent distress. Dressing clean, dry and intact. Motor function is intact distal bilateral lower extremities. Sensation grossly intact to light touch bilateral lower extremities. Both legs are warm and dry. Assessment & Plan Post-op Postoperative Procedures: Procedures Operation Date: 12/10/19 07:45 Actual Procedures Side Surgeon p L4-5 TLIF Niko Richard MD Postop day 1. Patient status post L4-L5 fusion. Limit bending, twisting, lifting. Weightbearing as tolerated. Continue to mobilize with physical therapy. Likely discharge home in 1-2 days.
--- NOTE | 2019-12-11 11:14 | CM.DPNOTE ---
DCP Cont Met w/patient this AM; introduced role. Patient is sitting up in chair, A+O. Patient explains she has 4 living children that live [place] the [place]. Patient lives on [address], spouse has 3 herniated discs and is awaiting his own spinal surgery w/Dr Richard. Patient further states although spouse is lacking activity tolerance, patient feels he can still assist w/daily chores and cooking, he can assist as needed once patient is home. Patient has had two knee surgeries, now POD#1 from spinal surgery w/ Dr Richard. She expects to return home tomorrow w/ outpatient f/u as directed by the Ortho team No barriers identified today to safe return home w/spouse, contact information left on white board and will follow closely in case DC needs or concerns arise. PANDA Elizabeth
[2019-12-11] MEDS: hydrOXYzine pamoate 25 MG CAPSULE PO ×2 (11:55→21:14)
--- NOTE | 2019-12-11 13:00 | OT.IP.EVAL ---
Current Diagnoses Spondylolisthesis, lumbar region (12/10/19) Surgery Performed Operation Date: 12/10/19 07:45 Actual Procedures p L4-5 TLIF - Niko Richard MD Past Medical History (Last Updated 12/07/19 @ 12:19 by Leeann Schneider, RN) Asthma (Acute) Depression (Acute) Gato's disease (Acute) Iron deficiency anemia (Acute) Myocardial infarction (Acute) MARIPOSA (obstructive sleep apnea) (Acute) Osteoporosis (Acute) Rib fracture (Acute) Surgical History (Last Updated 12/07/19 @ 12:19 by Leeann Schneider RN) H/O cataract extraction (Acute) History of facelift (Acute) History of hysterectomy (Acute) Hx of abdominoplasty (Acute) Hx of tonsillectomy (Acute) S/P right unicompartmental knee replacement (Acute 11/09/19) Occupational Therapy Inpatient Evaluation/Re-Eval M1 PT/OT-IP Prior Functional Status Start: 12/10/19 15:50 Freq: NEEDED Status: Active Protocol: Document 12/11/19 12:59 CGR (Rec: 12/11/19 13:10 CGR [email or web address]) Medical Review Prior Functional Status Medical History Reviewed Yes Communication able to make needs known Mobility and Gait pt stated that she is independent with all mobilities and ambulation without AD but occasionally uses a hurrycane dependent on level of pain Activities of Daily Living and IADL's Pt was IND in all ADLs Prior Functional Level (Other details) Pt lives with her who has a hx of back sx and back pain. Social History Household Members spouse Living Arrangements House Number of Floors (Floors) One Floor Number of Stairs To Enter/Railing? pt usually gets in from the garage with 3 steps to enter with L rail ascending Home Environment Standard Height Toilet,Walk in Shower,Built-In Shower Seat Home Equipment Four Wheel Walker,Straight Cane,Hand Held Shower,Grab Bars In Shower Employment Status Retired Additional Social History Comment has a hurrycane M2 OT-IP Current Condition Start: 12/11/19 12:59 Freq: Status: Active Protocol: Document 12/11/19 12:59 CGR (Rec: 12/11/19 13:10 CGR [email or web address]) Occupational Therapy Current Condition Current Condition Evaluation Date 12/11/19 Treatment Diagnosis L4-5 TLIF Diagnosis Onset Date 12/10/19 Post Operative Precautions Lumbar Precautions Log Roll,No Twisting,Limit Bending,Lifting Restriction of 10 lbs,Gait Belt above Incisional Area M3 OT- IP Subjective and Pain Start: 12/11/19 12:59 Freq: Status: Active Protocol: Document 12/11/19 12:59 CGR (Rec: 12/11/19 13:10 CGR [email or web address]) OT- Subjective Occupational Therapy Visit Type Type Initial Evaluation Visit Start Time 09:04 Visit Stop Time 09:27 Total Visit Minutes 38 Notes session split, second time from [id number] OT Pain Assessment Pain When Pain Assessed During Mobility Pain Present Pain Present Pain Reported Location back Intensity 4 Scale Used Numeric (0 - 10) Management Techniques Modification of Treatment,Re- positioning,Timing of Activity with Medications M4 OT- IP ADL's Start: 12/11/19 12:59 Freq: Status: Active Protocol: Document 12/11/19 12:59 CGR (Rec: 12/11/19 13:10 CGR [email or web address]) OT [id number]-[id number] General Evaluation Self-Feeding Ability Independent OT ADL-Grooming General Evaluation Grooming Ability Standby Assistance Areas Needing Assistance Face Washing Comments OT Grooming Comments standing at sink OT ADL-Oral Care General Eval Oral Care Ability Standby Assistance Areas of Assistance Brushing Teeth Comments Oral Care Comments standing at sink OT ADL-Dressing General Eval Lower Body Dressing Ability Standby Assistance Areas Needing Assistance Underpants/Brief,Socks Assistive Devices Dressing Assistive Devices Spray Gunner,Sock Aid Comments OT Dressing Comments pt educated in second session on use of hip kit. Pt demonstrated ability to doff socks and underpants using woven blind loom tender and don with woven blind loom tender or sock aid. OT ADL-Toileting General Evaluation Toileting Ability Standby Assistance Comments OT Toileting Comments urinated seated on toielt OT ADL-Bathing Comments OT Bathing Comments Pt declined to perform M5 OT- IP IADL's Start: 12/11/19 12:59 Freq: Status: Active Protocol: Document 12/11/19 12:59 CGR (Rec: 12/11/19 13:10 CGR [email or web address]) OT-Instrumental Activities of Daily Living Deficits IADL Deficits Identified No Deficits Home Safety Awareness Awareness of Need for Assistance at Home Good Awareness Ability to Problem Solve Emergency Able to Problem Solve Situations Medication Management Medication Management No Deficits Identified Money Management Money Management No Deficits Identified Meal Preparation Meal Preparation No Deficits Identified Meringuer Meringuer No Deficits Identified M6 OT- IP Functional Cognition Start: 12/11/19 12:59 Freq: Status: Active Protocol: Document 12/11/19 12:59 CGR (Rec: 12/11/19 13:10 CGR [email or web address]) Cognitive Factors Limiting Selfcare Function Cognitive Ability Level of Alertness Alert Patient Orientation Name,Age,Birthday,Month,Date, Year,Day of Week,Place, Situation Attention Span Ability Capable of Focused Attention, Capable of Sustained Attention Ability to Follow Commands Able to Follow Multi-Step Commands Memory Description No Deficits Noted Safety Awareness No Deficits Noted OT- Vision and Hearing OT- Hearing Assessment OT- Hearing Assessment WFL OT- Vision Assessment Visual Acuity Glasses All The Time Visual Attentiveness WFL Occular Pursuits WFL Visual Convergence WFL M7 OT- IP Mobility and Balance Start: 12/11/19 12:59 Freq: Status: Active Protocol: Document 12/11/19 12:59 CGR (Rec: 12/11/19 13:10 CGR [email or web address]) OT- Bed Mobility Assessment Rolling Type of Rolling Roll to Left Level of Assistance Standby Assistance Supine to Sit Supine to Sit Assist Standby Assistance Sit to Supine Sit to Supine Assist Standby Assistance Scooting Scooting to Edge of Bed Standby Assistance OT-Transfer Assessment Sit to and From Stand Sit to and from Stand Standby Assistance Transfers Transfer Ability Standby Assistance Technique Transfer Destination Bed,Chair,Toilet Transfer Technique Stand Step Pivot Devices Transfer Assistive Devices Gait Belt,Front Wheeled Walker Comments Mobility Comments Mobility around the room. Upon initial session, pt did bed mobility, ambulated to toilet, then to sink and back to chair. In second session, pt was in bed and performed bed mobility to participate and returned to bed at end of session. OT- Balance Assessment Sitting Balance and Reactions Static Sitting Balance Ability Good Dynamic Sitting Balance Ability Good M8 OT- IP Objective Assessments Start: 12/11/19 12:59 Freq: Status: Active Protocol: Document 12/11/19 12:59 CGR (Rec: 12/11/19 13:10 CGR [email or web address]) OT Gross Range of Motion Upper Extremity Range of Motion Assessment Within Functional Limits OT Strength Upper Extremity Strength Assessment Within Functional Limits OT- Coordination Assessment Upper Extremity Finger to Nose Test Within Functional Limits Finger Tapping Test Within Functional Limits OT-Muscle Tone Assessment Muscle Tone WNL Yes OT Sensation Assessment Edema Edema Absent M9 OT- IP Assessment and Plan Start: 12/11/19 12:59 Freq: Status: Active Protocol: Document 12/11/19 12:59 CGR (Rec: 12/11/19 13:10 CGR [email or web address]) OT Summary Assessment and Plan Potential Rehabilitation Potential Good Analytic Complexity at Evaluation Low Summary OT Impairments Pain,Functional Mobility, Dressing,Toileting,Bathing, Toilet Transfers,Shower Transfers,Activity Tolerance Progress Towards Goals Slow Progress due to Pain Assessment Summary Pt presents as a low complexity evaluation s/p L4-5 TLIF. Pt educated on safety after a back sx and taught LB dressing. PT will continue to benefit from OT services. Recommend d/c to home with husbands support. Goals Dressing Goal Independent Toileting Goal Independent Bathing Goal Independent Toilet Transfer Goal Independent Shower Transfer Goal Independent Days to Meet Goals 3 Frequency of Treatment Frequency Of Treatment Once a Day Treatment Plan OT Treatment Plan ADL Training,Functional Mobility,Patient/Family Education,Discharge Planning Other Treatment Recommendations and Next shower Treatment Focus Discharge Recommendations OT Discharge Recommendations Home with Assistance Transportation Needs at Discharge Private Vehicle
--- NOTE | 2019-12-11 13:47 | PT-IP ANOTE ---
Pt refused PT. stated that she wants to sleep right now. stated that she took vistaril that makes her sleepy and her nurse really wants her to sleep.
[2019-12-11] MEDS: ATORVASTATIN 20 MG TABLET 40 MG PO (21:12)
[2019-12-11] MEDS: SENNOSIDES 8.6 MG TABLET 17.2 MG PO (21:13)
[2019-12-11] MEDS: ACETAMINOPHEN 325 MG TABLET 650 MG PO (21:20)
--- NOTE | 2019-12-12 02:16 | PC.NURSE ---
Addendum entered by Valentina Tyson R.N. 12/12/19 04:57: States she hurts really bad when up to bathroom but rating severity as only 3/10 with movement. Requested/medicated with Oxycodone. Original Note: 1394 Patient was seen and assessed. Is alert and oriented but [place] with bilateral hearing aids. Breath sounds CTA with RA sat of 92%. HRR. Denies nausea. BT hypoactive but states she is passing flatus. Denies dysuria, frequency or urgency with urination. Is able to turn herself in bed. Dressing to back intact with no new drainage. Gets out of bed with walker and SBA. Denies pain. Wearing bilateral foot SCD's. Fall risk score is moderate; bed alarm is activated.
[2019-12-12 04:20] VITALS: BP 141/78; PULSE 100; RESP 16; TEMP 36.3; O2SAT 90
[2019-12-12] MEDS: OXYCODONE IR 5 MG TABLET 10 MG PO ×2 (04:55→08:25)
[2019-12-12] MEDS: FLUoxetine 20 MG CAPSULE 60 MG PO (08:25)
[2019-12-12] MEDS: DOCUSATE 100 MG CAPSULE PO (08:25)
[2019-12-12] MEDS: SODIUM CHLORIDE 0.9% FLUSH 10 ML IV (08:26)
[2019-12-12 08:28] VITALS: BP 96/52; PULSE 93; RESP 18; TEMP 36.8; O2SAT 92
--- NOTE | 2019-12-12 08:54 | PM.DS.1 ---
History of Present Illness History of Present Illness Date Patient Seen: 12/12/19 Time Patient Seen: 08:54 Chief complaint: LUMBAR TLIF *OPB* Narrative: The history and physical is contained in the chart in a previously completed note. Please refer to that note for this information. Discharge Providers Provider Discharge Date: 12/12/19 Primary care physician: Doctor Leonardo MD Consults: 12/07/19 12:23 Consult to Respiratory Therapy Evaluate & Treat Comment: INPT 12/08-MARIPOSA, no CPAP Physician Instructions: Evaluate and treat 12/10/19 07:41 Consult to Respiratory Therapy Evaluate & Treat Comment: Physician Instructions: Evaluate and treat 12/10/19 11:53 Consult to Occupational Therapy Evaluate & Treat Comment: Physician Instructions: Evaluate and treat Consult to Physical Therapy Evaluate & Treat Comment: Physician Instructions: Evaluate and Treat Discharge provider: Boo Ruelas MD Summary Hospital Course Discharge Diagnosis: 1. Lumbar spinal stenosis Hospital Course: The patient was admitted to the hospital and taken directly to the operating room on December 10, 2019. She underwent an L4-5 decompression and fusion. A postoperative day 1 she had limited mobility. She had marginal pain control. On postoperative day 2 she was anxious to go home but had not achieved physical therapy goals. At the time of this dictation plan is for additional physical therapy today and potentially discharge this afternoon, possibly tomorrow. Status at Discharge Cognitive/behavioral status at discharge: oriented Functional status at discharge: uses cane/walker Overall status at discharge: patient is progressing back to baseline Time Spent with Patient Time spent: Less than 30 minutes Exam Vital Signs (past 8 hours): - 12/12/19 04:20 12/12/19 08:28 Temperature 97.4 F L 98.2 F Pulse Rate 100 H 93 H Respiratory Rate 16 18 Blood Pressure 141/78 H 96/52 L Pulse Oximetry 90 L 92 Oxygen Delivery Method Room Air Oxygen Flow Rate 0 Narrative Exam Narrative: Lumbar wound is dressed with minimal drainage. Light touch is intact in both lower extremities. Motion is intact in both lower extremities. Discharge Assessment & Plan Assessment and Plan Assessment: Stable postoperative day 2 status post L4-L5 lumbar decompression and fusion. She has had marginal pain control and has made slow progress with physical therapy. Plan of Treatment: Additional physical therapy for 1 or 2 sessions today. Potential discharge this afternoon if she meets discharge criteria. Follow-up with Dr. Richard in 10-14 days. A discharge prescription for oxycodone has been placed on the chart. Discharge Plan Discharge Plan Patient Disposition: Home Discharge orders & Medications Discharge Orders: Discharge (Order); Ordered 12/12/19 Ordered By: Boo Ruelas Prescriptions: New acetaminophen 325 mg Tablet 650 mg PO Q6HR PRN (Reason: Pain, Mild (1-3)) 30 Days RF: 0 oxycodone 5 mg Tablet 10 mg PO Q4H PRN (Reason: Pain, Severe (7-10)) Qty: 40 RF: 0 Continued atorvastatin 40 mg tablet 40 mg PO DAILY RF: 0 fluoxetine 20 mg capsule 60 mg PO DAILY RF: 0 fluticasone propionate 50 mcg/actuation spray,suspension 1 spray INTRANASAL BEDTIME RF: 0 trazodone 50 mg Tablet 50 mg PO PRN PRN (Reason: Sleep) RF: 0 melatonin 3 mg Tablet 6 mg PO PRN PRN (Reason: Sleep) RF: 0 azelastine 137 mcg (0.1 %) Aerosol,[place] 2 spray INTRANASAL DAILY RF: 0 albuterol sulfate 90 mcg/actuation Hfa Aerosol Inhaler 2 puff INHALATION QID PRN (Reason: asthma) RF: 0 aspirin 81 mg tablet,delayed release (DR/EC) 81 mg PO DAILY RF: 0 Discontinued hydromorphone 2 mg Tablet 2 mg PO Q3H PRN (Reason: Pain, Severe (7-10)) Qty: 30 RF: 0 Follow up/Referrals: Niko Richard MD [Physician] - 2 Weeks Diet/Activity/Treatments Diet: Diet as Tolerated and Regular Activity: Lift no more than 10 pounds, no twisting, stooping or bending. Cold/Heat Therapy: You may apply ice for 15 minutes of every hour as needed to the surgical site for pain control. Skin/Wound/Dressing Care Report to your healthcare provider any signs of infection, such as:: chills, fever, night sweats, increased pain, unusual drainage and unusual redness Dressing: You may remove the dressing in 3 days and shower normally. You may have a dry gauze dressing applied as needed. Visit Report/Discharge Packet Instructions: DI for Transforaminal Lumbar Interbody Fusion Stand Alone Forms: Surgery Discharge Discharge Data Primary Care Provider: Miscellaneous,Doctor Attending Provider: Niko Richard
--- NOTE | 2019-12-12 10:22 | PT.IPTN ---
Current Diagnoses Spondylolisthesis, lumbar region (12/11/19) Surgery Performed Operation Date: 12/10/19 07:45 Actual Procedures p L4-5 TLIF - Niko Richard MD Physical Therapy Treatment Note M2 PT-IP Current Condition Start: 12/10/19 15:50 Freq: NEEDED Status: Active Protocol: Document 12/10/19 15:50 AB (Rec: 12/10/19 16:09 AB [id number]) Physical Therapy Current Condition Current Condition Evaluation Date 12/10/19 Treatment Diagnosis s/p L 4-5 fusion/lami; difficulty in walking Onset Date 12/10/19 Precautions Lumbar Precautions Log Roll,No Twisting,Limit Bending,Lifting Restriction of 10 lbs,Gait Belt above Incisional Area M3 PT-IP Subjective Start: 12/10/19 15:50 Freq: NEEDED Status: Active Protocol: Document 12/10/19 15:50 AB (Rec: 12/10/19 16:09 AB [id number]) Subjective Physical Therapy Visit Type Type Initial Evaluation Visit Start Time 14:35 Visit Stop Time 15:23 Total Visit Minutes 48 Number of ASH COLLECTOR Visits 0 Physical Therapy Visit Comments Patient Comments pt is agreeable to do PT Therapy Pain Assessment Pain When Pain Assessed At Rest Pain Present Pain Present Pain Reported Location Right Knee Intensity 2 Scale Used Numeric (0 - 10) Pain Management Techniques Modification of Treatment,Re- positioning,Timing of Activity with Medications M4 PT-IP Mobility and Gait Start: 12/10/19 15:50 Freq: NEEDED Status: Active Protocol: Document 12/12/19 10:18 SAK (Rec: 12/12/19 10:22 SAK [id number]) PT-Bed Mobility Assessment Rolling Level of Assist Standby Assistance Supine to Sit Supine to Sit Standby Assistance Scooting Scooting Up and Down in Bed Standby Assistance PT-Transfer Assessment Sit to and From Stand Sit to and from Stand Standby Assistance Equipment Transfer Assistive Device Gait Belt,Front Wheeled Walker Orthotic/Prosthetic Devices or Brace: No Transfers Transfer Destination Chair Transfer Technique Stand Step Pivot Transfer Ability Level of Assist Standby Assistance Comments Mobility Comments reviewed log roll, no bending, twisting, or lifting M5 PT-IP Objective Assessments Start: 12/10/19 15:50 Freq: NEEDED Status: Active Protocol: Document 12/10/19 15:50 AB (Rec: 12/10/19 16:09 AB [id number]) Orientation Orientation/Cognition Level of Alertness Alert Orientation Name,Place,Situation Language Function Ability Hard of Hearing Safety Awareness Decreased Safety Awareness Memory Description Short Term Impaired Gross Range of Motion Lower Extremity ROM Assessment Within Functional Limits Strength Lower Extremity Strength Assessment Within Functional Limits Hip 4-/5 Knee 4-/5 Coordination Assessment Gross Coordination Gross Coordination WNL Sensation Assessment Sensation Gross Sensation WNL Muscle Tone Muscle Tone WNL Yes M6 PT-IP Treatment Start: 12/10/19 15:50 Freq: NEEDED Status: Active Protocol: Document 12/12/19 10:18 [facility] (Rec: 12/12/19 10:22 [facility] [id number]) Physical Therapy Treatment Education Education Provided Precautions,Safety Other Treatments Other Treatment Performed Stair ambulation: 3 stairs with left rail with SBA Gait training 125' with FWW and SBA M7 PT-IP Assessment and Plan Start: 12/10/19 15:50 Freq: NEEDED Status: Active Protocol: Document 12/12/19 10:18 [facility] (Rec: 12/12/19 10:22 [facility] [id number]) PT Summary Assessment and Plan Summary Assessment Summary Patient cleared for discharge home with assist of . Able to ambulate on stairs with SBA with left railing. Ambulated in hallway 125' with SBA. Has walker and cane at home. No further PT needs Recommendations To Nursing Amount of Assist Needed 1 Person Assist Discharge Recommendations PT Discharge Recommendations Home with Assistance Transportation Needs at Discharge Private Vehicle
--- NOTE | 2019-12-12 11:12 | PC.NURSE ---
Pt is dressed and ready for discharge home with Spouse. IV's have been removed and dsg to back has been changed to a Coversite. Jung are intact and without drainage. Pt has walked in the halls and practiced the steps with P.T. Went over d/c instructions with Pt -discussed d/c meds, time of last dose, reviewed stroke education and back precautions (Pt also has her PT packet for back surgery in with her belongings to take home and refer to. Encouraged Pt to drink plenty of fluids to prevent constipation or dehydration. Pt states she is happy to say that she has very little pain at this time. When spouse arrives to take her home she will be taken out to POV via w/c by [employer] with all belongings and Spouse to drive the car. (Pt was reminded that she must not drive while taking narcotics.
== END 2019-12-12 11:37 | disposition home or self-care (01) ==
PROVIDERS: Admitting Provider Orthopaedic Surgery Orthopaedic Surgery of the Spine; Referring Provider Orthopaedic Surgery Orthopaedic Surgery of the Spine; Visit Provider Orthopaedic Surgery Orthopaedic Surgery of the Spine
PROC: (CPT 22633; principal; 2019-12-10 07:45)
DX: M43.16 Spondylolisthesis, lumbar region (principal); M48.061 Spinal stenosis, lumbar region without neurogenic claudication; M54.16 Radiculopathy, lumbar region
CPT/HCPCS: 22633; 22853; 63047; 22840; 20939; 72100; 76000; 94660; 97116; 97161; 97165; 97530; 97535; C1776; G0378; A9270; C9290; J0330; J0690; J1100; J1170; J2250; J2405; J2704; J3010

== ENCOUNTER → 2023-09-30 08:02 | Outpatient (CLI) | payer MEDICARE, SELFPAY ==
[2023-09-26 11:34] VITALS: BMI 23.8
--- NOTE | 2023-09-30 08:03 | DI.MRI.S_ITS ---
PROCEDURE: MR CERVICAL SPINE WO CON INDICATIONS: CERVICAL RADICULOPATHY TECHNIQUE: Noncontrast sagittal T1 spin echo and T2 fast spin echo, sagittal STIR, foraminal oblique sagittal T2 fast spin echo, and axial gradient echo or T2 fast spin echo through the cervical spine. COMPARISON: None. FINDINGS: Image quality: Excellent. Alignment and Curvature: There is straightening and mild reversal of normal cervical lordosis with apex at C5 level. There is 3 mm retrolisthesis of C5 on C6 and 1-2 mm anterolisthesis of C2 on C3, C3 on C4 and C4 on C5. Bone Marrow: Marrow demonstrates normal overall signal. Spinal Cord: Visualized spinal cord has normal size and signal. No cerebellar tonsillar herniation. Paraspinous Soft Tissues: No paravertebral masses. Prevertebral soft tissues are normal in thickness. C2-C3: Loss of disc signal. No significant disc bulge, canal stenosis or neural foraminal narrowing. C3-C4: Loss of disc signal. Mild central disc bulge is seen. No significant central canal stenosis or neural foraminal narrowing. C4-C5: Loss of disc height and disc signal. Broad-based disc bulge and bilateral uncovertebral hypertrophic changes causing mild central canal stenosis and moderate left-sided neural foraminal narrowing. No significant right-sided neural foraminal narrowing. C5-C6: Loss of disc height and disc signal. Broad-based disc bulge and bilateral uncovertebral hypertrophic changes causing [id number] central canal stenosis, moderate to severe bilateral neural foraminal narrowing worse on the right side. Bulging disc likely contacting bilateral exiting C6 nerve roots. C6-C7: Loss of disc height and disc signal. Broad-based disc bulge and bilateral uncovertebral hypertrophic changes are seen with mild central canal stenosis and moderate left-sided neural foraminal narrowing. Bulging disc is seen contacting exiting left C7 nerve root. C7-T1: Normal appearance. IMPRESSION: 1. No marrow edema. No acute vertebral body compression fracture. Likely degenerative spondylolisthesis throughout cervical spine as described above. 2. No abnormal cervical spinal cord signal. No Chiari malformation. 3. [id number]-[id number] degenerative disc disease and bilateral uncovertebral hypertrophic changes throughout cervical spine causing various degrees of central canal stenosis and bilateral neural foraminal narrowing more notably at C4-5 through C6-7 levels as described in detail above. Dictated by: Adrian Jane M.D. on 09/30/2023 at 17:34 Approved by: Adrian Jane M.D. on 09/30/2023 at 17:38
== END ==
PROVIDERS: PCP Physician Assistant; Referring Provider Orthopaedic Surgery Orthopaedic Surgery of the Spine; Visit Provider Orthopaedic Surgery Orthopaedic Surgery of the Spine
DX: M50.11 Cervical disc disorder with radiculopathy, high cervical region (principal); M48.02 Spinal stenosis, cervical region
CPT/HCPCS: 72141